=== PATIENT | female | born 1960 | race Caucasian/White ===

== ENCOUNTER 2018-03-31 13:55 | Emergency (ER) | payer BC ==
[2018-03-31] MEDS ORDERED: LIDOCAINE 2% VISCOUS 15 ML UDCUP PO ONE (14:23)
[2018-03-31] MEDS ORDERED: MAG HYDROX/AL HYDROX/SIMETH 30 ML UDCUP PO ONE (14:23)
[2018-03-31] MEDS ORDERED: HYOSCYAMINE SULFATE 0.125 MG TAB PO ONE (14:23)
--- NOTE | 2018-03-31 14:23 | EDPHY ---
H & P Stated Complaint: abd pain - Personal History Current Tetanus/Diphtheria Vaccine: Yes Current Tetanus Diphtheria and Acellular Pertussis (TDAP): Yes - Medical/Surgical History Hx Asthma: No Hx Chronic Respiratory Disease: No Hx Diabetes: No Hx Cardiac Disease: No Hx Renal Disease: No Hx Cirrhosis: No Hx Alcoholism: No Hx HIV/AIDS: No Hx Splenectomy or Spleen Trauma: No Other PMH: hypothyroid - Social History Smoking Status: Never smoked Time Seen by Provider: 03/31/18 14:15 HPI/ROS: CHIEF COMPLAINT: Epigastric pain since last evening HISTORY OF PRESENT ILLNESS: 58-year-old female generally healthy, no prior history of cardiac disease or pulmonary disease or chronic abdominal disease, arrives via private vehicle complaining of epigastric pain radiating to her back since last evening. Not associated with exertion. As recently as [place] [id number] [place] and did not experience chest pain with exertion, dyspnea with exertion out of proportion to activity level. No nausea or vomiting. No diarrhea. REVIEW OF SYSTEMS: 10 systems reviewed and negative with the exception of the elements mentioned in the history of present illness PAST MEDICAL & SURGICAL HISTORY: . Otherwise no history of abdominal surgeries, no history of coronary artery disease r SOCIAL HISTORY:Nonsmoker. No drug use. No cocaine use. Visiting from [place]. PHYSICAL EXAM (Prior to examination, patient consented to physical exam, hands were washed and my usual and customary physical exam procedures followed) 1) GENERAL: Well-developed, well-nourished, alert and oriented. Appears to be in no acute distress. 2) HEAD: Normocephalic, atraumatic 3) HEENT: Pupils equal, round, reactive to light bilaterally. Sclera anicteric. Nasopharynx, oropharynx, clear, no lesions. MoistDry mucous membranes. Ears bilaterally with normal tympanic membranes. 4) NECK: Full range of motion, no meningeal signs. 5) LUNGS: Clear auscultation bilaterally, no wheezes, no rhonchi, no retractions. 6) HEART: Regular rate and rhythm, no murmur, no heave, no gallop. 7) ABDOMEN: No guarding tender to palpation right upper quadrant and epigastrium midline. No palpable or pulsatile mass. negative McBurney's, negative Diaz's, negative Rovsing's, negative peritoneal sign, no femoral bruit 8) MUSCULOSKELETAL: Moving all extremities, no focal areas of tenderness, no obvious trauma. No peripheral edema or discoloration. 9) BACK: No CVA tenderness, no midline vertebral tenderness, no fluctuance, no step-off, no obvious trauma, no visual or palpable abnormality. 10) SKIN: No rash, no petechiae. 11) Psychiatric: Patient is oriented X 3, there is no agitation. DIFFERENTIAL DIAGNOSIS: In no particular order, including but not limited to biliary colic, cholecystitis, peptic ulcer disease, pancreatitis, and gastroenteritis. This is a partial list of diagnoses considered. These considerations are based on history, physical exam, past history and reassessment. (Rio Glaser) Constitutional: Initial Vital Signs Temperature (C) 36.7 C 03/31/18 14:07 Heart Rate 46 L 03/31/18 14:07 Respiratory Rate 20 03/31/18 14:07 Blood Pressure 116/60 03/31/18 14:07 O2 Sat (%) 97 03/31/18 14:07 O2 Delivery Mode Room Air Allergies/Adverse Reactions: Sulfa (Sulfonamide Antibiotics) Allergy (Verified 03/31/18 14:07) Home Medications: Medication Instructions Recorded Levothyroxine 03/31/18 Pantoprazole Sodium [Protonix 40mg 40 mg PO DAILY #30 tab 03/31/18 (RX)] Ranitidine HCl [Zantac] 150 mg PO BID #30 tablet 03/31/18 Medical Decision Making - Diagnostics EKG Interpretation: EKG: Complete interpretation has been separately recorded in the [facility] archive. Summary impression: Sinus rhythm, rate 51 (Hugh Sanford) Imaging Results: Imaging Impressions Chest X-Ray 03/31/18 14:18 Impression: Negative. Abdomen Ultrasound 03/31/18 14:30 Impression: 1. No cholelithiasis, biliary dilation, hydronephrosis or free fluid. 2. Two small benign gallbladder polyps. No follow up is necessary as per ACR guidelines. 3. Hepatic steatosis. Findings discussed with Emergency Department physician assistant department manager, Armando Glaser PA-C on March 31, 2018 at 1529 hours. Imaging Impressions Chest X-Ray 03/31/18 14:18 Impression: Negative. Abdomen Ultrasound 03/31/18 14:30 Impression: 1. No cholelithiasis, biliary dilation, hydronephrosis or free fluid. 2. Two small benign gallbladder polyps. No follow up is necessary as per ACR guidelines. 3. Hepatic steatosis. Findings discussed with Emergency Department physician assistant department manager, Armando Glaser PA-C on March 31, 2018 at 1529 hours. Images reviewed myself ([place] Glaser) ED Course/Re-evaluation: 2:30 p.m.: Patient describes arriving from [place] 5 days ago and already having [place]iked [id number] [place] [address] [place] for several hours without developing chest pain with exertion or dyspnea with exertion beyond that expected for activity level. I think that cardiac etiology is less than likely in this patient. 3:51 p.m.: Re-evaluation. Patient notes complete resolution of symptoms upon ingestion of GI cocktail. Re-examined the patient, she has no subjective or objective findings. Abdomen is completely soft and benign with no palpable or pulsatile mass. Discussed with her her imaging studies showing no evidence of acute cholecystitis. She is noted to have gallbladder polyps which I discussed with her. She will necessitate follow-up for this. Doubt abdominal aortic aneurysm or dissection as her symptoms completely resolved a few seconds after ingesting the GI cocktail. Doubt cardiac etiology. Her asymptomatic physically exertional work out at altitude is reassuring for noncardiac pathology. I think the patient can be discharged. She is started on Zantac, proton pump inhibitor, usual customary dietary precautions instructions. Recommend she follow up with a principal software engineer and she returns to hometown in [place]. The Definitely if she develops new symptoms she needs to return to the ER immediately for re-evaluation. She feels comfortable being discharged. All questions and concerns addressed by myself. Care of patient under supervision of primary supervising physician Dr Sanford with whom I discussed case. ([place] Glaser) - Data Points Laboratory Results: Laboratory Results 03/31/18 14:20 03/31/18 14:20 03/31/18 03/31/18 03/31/18 14:23 14:20 14:20 WBC RBC Hgb Hct MCV MCH MCHC RDW Plt Count MPV Neut % (Auto) Lymph % (Auto) [place] % (Auto) Eos % (Auto) Baso % (Auto) Nucleat RBC Rel Count Absolute Neuts (auto) Absolute Lymphs (auto) Absolute Monos (auto) Absolute Eos (auto) Absolute Basos (auto) Absolute Nucleated RBC Immature Gran % Immature Gran # Sodium 138 mEq/L mEq/L (135-145) Potassium 3.9 mEq/L mEq/L (3.5-5.2) Chloride 107 mEq/L mEq/L (97-110) Carbon Dioxide 21 mEq/l L mEq/l (22-31) Anion Gap 10 mEq/L mEq/L (6-14) BUN 19 mg/dL mg/dL (7-23) Creatinine 0.8 mg/dL mg/dL (0.6-1.0) Estimated GFR > 60 Glucose 112 mg/dL H mg/dL (70-100) Calcium 9.4 mg/dL mg/dL (8.5-10.4) Total Bilirubin 0.5 mg/dL mg/dL (0.1-1.4) Conjugated Bilirubin 0.3 mg/dL mg/dL (0.0-0.5) Unconjugated Bilirubin 0.2 mg/dL mg/dL (0.0-1.1) AST 28 IU/L IU/L (14-46) ALT 28 IU/L IU/L (9-52) Alkaline Phosphatase 80 IU/L IU/L (38-126) POC Troponin I 0.02 ng/mL ng/mL (0.00-0.08) Total Protein 7.1 g/dL g/dL (6.3-8.2) Albumin 4.1 g/dL g/dL (3.5-5.0) Lipase 72 IU/L IU/L (23-300) Beta HCG, Qual NEGATIVE 03/31/18 14:20 WBC 5.39 10^3/uL 10^3/uL (3.80-9.50) RBC 4.47 10^6/uL 10^6/uL (4.18-5.33) Hgb 13.8 g/dL g/dL (12.6-16.3) Hct 40.3 % % (38.0-47.0) MCV 90.2 fL fL (81.5-99.8) MCH 30.9 pg pg (27.9-34.1) MCHC 34.2 g/dL g/dL (32.4-36.7) RDW 12.4 % % (11.5-15.2) Plt Count 307 10^3/uL 10^3/uL (150-400) MPV 9.6 fL fL (8.7-11.7) Neut % (Auto) 43.0 % % (39.3-74.2) Lymph % (Auto) 45.6 % H % (15.0-45.0) [place] % (Auto) 9.8 % % (4.5-13.0) Eos % (Auto) 0.7 % % (0.6-7.6) Baso % (Auto) 0.7 % % (0.3-1.7) Nucleat RBC Rel Count 0.0 % % (0.0-0.2) Absolute Neuts (auto) 2.31 10^3/uL 10^3/uL (1.70-6.50) Absolute Lymphs (auto) 2.46 10^3/uL 10^3/uL (1.00-3.00) Absolute Monos (auto) 0.53 10^3/uL 10^3/uL (0.30-0.80) Absolute Eos (auto) 0.04 10^3/uL 10^3/uL (0.03-0.40) Absolute Basos (auto) 0.04 10^3/uL 10^3/uL (0.02-0.10) Absolute Nucleated RBC 0.00 10^3/uL 10^3/uL (0-0.01) Immature Gran % 0.2 % % (0.0-1.1) Immature Gran # 0.01 10^3/uL 10^3/uL (0.00-0.10) Sodium Potassium Chloride Carbon Dioxide Anion Gap BUN Creatinine Estimated GFR Glucose Calcium Total Bilirubin Conjugated Bilirubin Unconjugated Bilirubin AST ALT Alkaline Phosphatase POC Troponin I Total Protein Albumin Lipase Beta HCG, Qual Medications Given: Discontinued Medications Al Hydroxide/Mg Hydroxide (Maalox Susp) 30 ml PO ONCE ONE Stop: 03/31/18 14:24 Last Admin: 03/31/18 14:25 Dose: 30 ml Hyoscyamine Sulfate (Levsin, Hyomax-Sl) 0.25 mg PO ONCE ONE Stop: 03/31/18 14:24 Last Admin: 03/31/18 14:25 Dose: 0.25 mg Lidocaine (Lidocaine 2% Viscous) 15 ml PO ONCE ONE Stop: 03/31/18 14:24 Last Admin: 03/31/18 14:25 Dose: 15 ml Point of Care Test Results: Chemistry 03/31/18 14:23 POC Troponin I 0.02 ng/mL ng/mL (0.00-0.08) Departure - Departure Disposition: Home, Routine, Self-Care Clinical Impression: Epigastric abdominal pain Condition: Good Instructions: Epigastric Pain (ED) Additional Instructions: Seek immediate medical attention if you develop new or worsening symptoms, if you develop fevers, chills, inability to tolerate oral intake or any other symptoms that concerns you. Eat a bland, low-fat, low spice , low acidity diet. Take your medications as directed. Follow up with a principal software engineer when you return here hometown Referrals: Florencio Redmond MD, FACG [Medical Doctor] - 2-3 days, if not improved (You may also follow up with a principal software engineer in your hometown.) Prescriptions: Pantoprazole Sodium [Protonix 40mg (RX)] 40 mg PO DAILY #30 tab Ranitidine HCl [Zantac] 150 mg PO BID #30 tablet
[2018-03-31 14:32] LABS: PLATELET COUNT 307 10^3/uL (150-400)
--- NOTE | 2018-03-31 14:38 | CPEKG ---
Test Reason : OPEN Blood Pressure : / mmHG Vent. Rate : 051 BPM Atrial Rate : 051 BPM P-R Int : 198 ms QRS Dur : 084 ms QT Int : 486 ms P-R-T Axes : 036 047 073 degrees QTc Int : 448 ms Sinus rhythm Nonspecific T abnrm, anterolateral leads Confirmed by Hugh Sanford ([id number]) on 03/31/2018 2:37:58 PM Referred By: Confirmed By:Hugh Sanford
[2018-03-31 15:26] VITALS: BP 135/70
== END 2018-03-31 16:41 | disposition home or self-care (01) ==
DX: R10.13 Epigastric pain (principal); K82.4 Cholesterolosis of gallbladder; K76.0 Fatty (change of) liver, not elsewhere classified; Z88.2 Allergy status to sulfonamides
CPT/HCPCS: 84484-PO